=== PATIENT | male | born 1995 | race Caucasian/White ===

== ENCOUNTER 2020-08-03 09:55 | Emergency (ER) | payer OTHER, SELFPAY ==
[2020-08-03 10:22] VITALS: BP 120/66; PULSE 82; RESP 16; TEMP 36.4; O2SAT 100; BMI 17.2
--- NOTE | 2020-08-03 10:51 | ED_ITS ---
HPI - Eye Problem General Chief complaint: Eye Problems Stated complaint: swollen eye Time Seen by Provider: 08/03/20 10:51 History of Present Illness HPI Narrative: Patient complains of redness and mild discomfort in the skin of the right eyelid and below the right eye, no vision loss no injury no discharge from high no pain in the eye itself no photophobia Related Data Previous Rx's Medication Instructions Recorded cephalexin [Keflex] 500 mg PO QID 7 Days #28 cap 08/03/20 erythromycin 0.5 inch OPHTHALMIC (EYE) TID 5 08/03/20 Days #3.5 g Allergies Allergy/AdvReac Type Severity Reaction Status Date / Time No Known Allergies Allergy Unverified 03/21/20 18:48 Review of Systems Review of Systems: Positive for mildly painful red rash around right orbit Negatives are no headache no vision loss no eye pain no discharge from the eye no neck pain no fever no chills no dizziness no chest pain no shortness of breath no nausea no vomiting Yes all other systems are reviewed and are negative PMFSH Past Medical History Source: nursing notes reviewed Surgical History (Updated 08/03/20 @ 10:25 by Maisha Diaz) H/O eye surgery Social History Social History Smoking Status: Current every day smoker Smoked in Last 30 Days: Yes Use of substances other than those prescribed or required for medical reasons: No Advance Directives: No Advance Directives Information Provided: Yes Physical Exam Vital Signs: Vital Signs: Last Vital Signs Temp 97.6 F 08/03/20 10:22 Pulse 82 08/03/20 10:22 Resp 16 08/03/20 10:22 BP 120/66 08/03/20 10:22 Pulse Ox 100 08/03/20 10:22 Body Mass Index 17.2 General appearance is a and O x3, comfortable, relaxed, cooperative no acute distress Head is normocephalic atraumatic The right orbit is red with mild tenderness and mild swelling The eyes are pupils equal round react light and extraocular motions are intact, there is no pain with extraocular motions, there is no discharge from the eye, there is very mild conjunctival redness on the right side, no photophobia, no foreign body, no corneal abrasion Neck is supple Respiratory no distress Extremities full range of motion x4 Neuro no focal deficit Course Course Course Narrative: Patient with right-sided periorbital cellulitis is treated with antibiotic no vision changes no headache no pain with motion of the eye Discharge Plan Discharge Clinical Impression: Periorbital cellulitis Patient Disposition: Home, Self-Care Additional Instructions: Use antibiotic pill and ointment as directed Return to ER any time for spreading redness, vision change or vision loss, discharge from the eye, pain in the eye itself, fever, any worse condition or an y concerns or any sign of worsening infection If no improvement in 2-3 days follow with your doctor or return to the ER for recheck Prescriptions: New cephalexin [Keflex] 500 mg capsule 500 mg PO QID 7 Days Qty: 28 RF: 0 erythromycin 5 mg/gram (0.5 %) ointment 0.5 inch ophthalmic (eye) TID 5 Days Qty: 3.5 RF: 0 Interventions: ED Discharge Assessment Last Done: 08/03/20 11:10 Discharge Date/Time: 08/03/20 11:11
[2020-08-03] MEDS: cephALEXin 500 MG CAPSULE PO (11:08)
[2020-08-03] MEDS: Erythromycin Base 0.5% Oph Oin 1 GM TUBE 1 CM EYE-RIGHT (11:08)
== END 2020-08-03 11:11 | disposition home or self-care (01) ==
PROVIDERS: Emergency Provider Emergency Medicine; PCP Internal Medicine Sports Medicine
DX: L03.213 Periorbital cellulitis (principal); F17.200 Nicotine dependence, unspecified, uncomplicated
CPT/HCPCS: 99283

== ENCOUNTER 2021-07-07 17:46 | Emergency (ER) | payer OTHER, SELFPAY ==
[2021-07-07 18:29] VITALS: BP 134/70; PULSE 81; RESP 16; TEMP 37.2; O2SAT 98; BMI 18.0
[2021-07-07 18:52] LABS: IDNOW Serial# 9DD0AD1C; Strep A Nucleic Acid Negative (Negative)
[2021-07-07 19:01] LABS: COVID-19 Test Negative (Negative)
--- NOTE | 2021-07-07 19:53 | ED_ITS ---
HPI - General Adult General Chief complaint: Upper Respiratory Symptoms Stated complaint: ? strep throat Time Seen by Provider: 07/07/21 19:53 Source: patient Mode of arrival: ambulatory Limitations: no limitations History of Present Illness HPI narrative: 26 y/o male with history of COVID in Apr 2021 presents to the ED with 2 days of sore throat. He also has some generalized abdominal pain this morning, he vomited and his pain has been improving throughout the day. His throat continues to hurt and he has pain with swallowing. He denies any fever or chills. He is not coughing or having any shortness of breath. He denies any difficulty swallowing but reports pain. No known sick contacts. MD complaint: Sore throat and abdominal pain. Onset (ago): day(s) (2) Location: mouth and abdomen Radiation: non-radiation Severity: moderate Quality: aching Pain Consistency: constant Relieving factors: none Exacerbating factors: none Associated symptoms: loss of appetite, malaise, nausea/vomiting and weakness Treatments prior to arrival: none Related Data Previous Rx's Medication Instructions Recorded cephalexin 500 mg capsule (Keflex) 500 mg PO QID 7 Days #28 cap 08/03/20 erythromycin 5 mg/gram (0.5 %) eye 0.5 inch OPHTHALMIC (EYE) TID 5 08/03/20 ointment Days #3.5 g amoxicillin 500 mg tablet 500 mg PO Q12H #20 tab 07/07/21 ibuprofen 600 mg tablet 600 mg PO Q8H PRN #20 tab 07/07/21 ondansetron 4 mg disintegrating 4 mg PO Q8H PRN #7 tab 07/07/21 tablet Allergies Allergy/AdvReac Type Severity Reaction Status Date / Time No Known Allergies Allergy Unverified 03/21/20 18:48 Review of Systems Review of Systems: Constitutional: No Fever, No Chills ENT/Mouth: + sore throat, No Rhinorrhea, No Swallowing Difficulty Cardiovascular: No Chest Pain, No SOB Respiratory: No Cough, No Sputum, No Wheezing, No dyspnea Gastrointestinal: + Nausea, + Vomiting, No Diarrhea, + abdominal Pain Genitourinary: No Dysuria, No Urinary Frequency, No Hematuria Musculoskeletal: No joint pain, No Myalgias Skin: No Skin Lesions, No rash Neuro: + Weakness, No Numbness, No Dizziness, No Headache Psych: + Anxiety/Panic Heme/Lymph: + Lymphadenopathy [facility], [facility] Past Medical History Surgical History (Updated 08/03/20 @ 10:25 by Maisha Diaz) H/O eye surgery Social History Social History Advance Directives: No Advance Directives Information Provided: No Physical Exam Vital Signs: Vital Signs: Last Vital Signs Temp 98.9 F 07/07/21 18:29 Pulse 81 07/07/21 18:29 Resp 16 07/07/21 18:29 BP 134/70 07/07/21 18:29 Pulse Ox 98 07/07/21 18:29 BMI result Body Mass Index 18.0 Appearance: Alert. Oriented X3. No acute distress. Eyes: Pupils equal, round and reactive to light. ENT: Pharynx with moist mucous membranes. Posterior oropharynx with severe erythema, bilateral tonsillar enlargement with diffuse white exudates. Uvula is midline. Neck: Normal inspection. Neck supple. Positive lymphadenopathy in submandibular area bilaterally. CVS: Normal heart rate and rhythm. Pulses normal. Respiratory: No respiratory distress. Breath sounds normal. Abdomen: Soft and nontender. +BS x4 Skin: Skin warm and dry. Normal skin color. Normal skin turgor. No rashes. Extremities: No lower extremity edema. Neuro: Oriented X 3. Grossly normal, nonfocal Course Course Course Narrative: 26-year-old male presenting with sore throat, abdominal pain and vomiting. His exam is consistent with strep throat with diffuse pharyngeal erythema and bilateral tonsillar exudates. No evidence of retropharyngeal or peritonsillar abscess. His strep test is negative however given his exam and his clinical presentation will treat with 10 days of amoxicillin. His COVID test is negative. Stable for d/c home with PO abx and supportive care. Medical Decision Making Lab Data Labs: Lab Results 07/07/21 07/07/21 Range/Units 18:34 18:36 COVID-19 (TRIPP) Negative (Negative) COVID-19 Clin Com See Note S. pyogenes GrpA KATHERIN Negative (Negative) Discharge Plan Discharge Clinical Impression: Pharyngitis Qualifiers: Pharyngitis/tonsillitis etiology: unspecified etiology Qualified Code(s): J02.9 - Acute pharyngitis, unspecified Patient Disposition: Home, Self-Care Instructions: Pharyngitis (ED) Additional Instructions: Take the prescribed antibiotic as directed for a full 10 days. Use warm salt water gargles several times per day. Recommend [id number] Chloraseptic spray or Cepacol lozenges to help with sore throat. Take Motrin and/or Tylenol as needed for fevers or pains. Rest and stay hydrated. If you develop new or worsening symptoms call 911 or come back to the ER for further evaluation. Prescriptions: New amoxicillin 500 mg tablet 500 mg PO Q12H Qty: 20 RF: 0 ondansetron 4 mg tablet,disintegrating 4 mg PO Q8H PRN (Reason: nausea and vomiting) Qty: 7 RF: 0 ibuprofen 600 mg tablet 600 mg PO Q8H PRN (Reason: fever or pain) Qty: 20 RF: 0 No Action cephalexin [Keflex] 500 mg capsule 500 mg PO QID 7 Days Qty: 28 RF: 0 erythromycin 5 mg/gram (0.5 %) ointment 0.5 inch ophthalmic (eye) TID 5 Days Qty: 3.5 RF: 0 Stand Alone Forms: Work/School Release Interventions: ED Discharge Assessment Last Done: 07/07/21 20:24 Discharge Date/Time: 07/07/21 20:25
== END 2021-07-07 20:25 | disposition home or self-care (01) ==
PROVIDERS: Emergency Provider Internal Medicine; PCP Internal Medicine
DX: J02.9 Acute pharyngitis, unspecified (principal); Z20.822 Contact with and (suspected) exposure to COVID-19
CPT/HCPCS: 36415; 87635; 87651; 99282; 99283

== ENCOUNTER 2021-12-02 12:48 | Emergency (ER) | payer OTHER, SELFPAY ==
[2021-12-02 14:03] VITALS: BP 132/91; PULSE 63; RESP 18; TEMP 36.8; O2SAT 99; BMI 18.0
--- NOTE | 2021-12-02 15:26 | ED_ITS ---
HPI - Eye Problem General Chief complaint: Eye Problems Stated complaint: cellulitis Time Seen by Provider: 12/02/21 15:10 Source: patient Mode of arrival: ambulatory Limitations: no limitations History of Present Illness HPI Narrative: 26 yo male here with complaints of right upper eyelid swelling and pain for few days. No vision changes. No discharge. No eye pain or irritation. Related Data Previous Rx's Medication Instructions Recorded cephalexin 500 mg capsule (Keflex) 500 mg PO QID 7 Days #28 cap 08/03/20 erythromycin 5 mg/gram (0.5 %) eye 0.5 inch OPHTHALMIC (EYE) TID 5 08/03/20 ointment Days #3.5 g amoxicillin 500 mg tablet 500 mg PO BID #20 tab 07/07/21 amoxicillin 500 mg tablet 500 mg PO Q12H #20 tab 07/07/21 ibuprofen 600 mg tablet 600 mg PO Q8H PRN #20 tab 07/07/21 ibuprofen 600 mg tablet 600 mg PO Q8H PRN #20 tab 07/07/21 ondansetron 4 mg disintegrating 4 mg PO Q8H PRN #10 tab 07/07/21 tablet ondansetron 4 mg disintegrating 4 mg PO Q8H PRN #7 tab 07/07/21 tablet erythromycin 5 mg/gram (0.5 %) eye 0.5 inch OPHTHALMIC (EYE) TID #3.5 12/02/21 ointment g Allergies Allergy/AdvReac Type Severity Reaction Status Date / Time No Known Allergies Allergy Verified 12/02/21 14:03 Review of Systems Review of Systems: Yes all other systems are reviewed and are negative Constitutional: Constitutional: Reports no additional constitutional complaints, Denies body ache(s), Denies chills, Denies fever(s), Denies headache(s) and Denies weakness Eyes: Eyes: Reports no additional eye complaints, Denies change in vision, Denies eye discharge, Denies eye pain and Denies photophobia ENT: Reports system reviewed and no additional complaints, except as docum ented, Denies dizziness, Denies headache(s), Denies nasal congestion, Denies nasal discharge and Denies neck pain Cardiovascular: Cardiovascular: Reports no additional cardiovascular complaints, Denies chest pain, Denies leg edema and Denies dyspnea Respiratory: Respiratory: Reports no additional respiratory complaints, Denies cough and Denies dyspnea Gastrointestinal: Gastrointestinal: Reports no additional gastrointestinal complaints, Denies abdominal pain, Denies diarrhea, Denies nausea and Denies vomiting Genitourinary: Genitourinary: Denies urinary incontinence Musculoskeletal: Musculoskeletal: Reports no additional musculoskeletal complaints, Denies back pain, Denies arthralgias, Denies joint swelling, Denies neck pain, Denies numbness and Denies tingling Integumentary/Breasts: Skin/Breast: Reports system reviewed and no additional complaints, except as docu and Denies rash Neurologic: Reports system reviewed and no additional complaints, except as documented, Denies Abnormal speech present, Denies dizziness, Denies headache (s), Denies numbness, Denies tingling and Denies weakness PMF Past Medical History Attestation statement: The following information was validated with the patient. Source: old records reviewed and nursing notes reviewed Surgical History H/O eye surgery Social History Social History Advance Directives: No Advance Directives Information Provided: No Physical Exam Vital Signs: Vital Signs: Last Vital Signs Temp 98.3 F 12/02/21 14:03 Pulse 63 12/02/21 14:03 Resp 18 12/02/21 14:03 BP 132/91 H 12/02/21 14:03 Pulse Ox 99 12/02/21 14:03 BMI result Body Mass Index 18.0 Const: General: cooperative, healthy appearing, comfortable and no acute distress Orientation/consciousness: patient oriented x3 Limitations: no limitations HEENT: Head: Yes normal to inspection Ears: hearing grossly normal bilater ally Eyes: General: appearance normal, both eyes and all related structures Visual [place]: normal visual [place] by confrontation Alignment and Position: alignment normal Periorbital: periorbital findings normal Eyelids: Yes eyelid abnormality (Right upper eyelid swelling, erythema with palpable stye) Conjunctivae: conjunctivae normal Sclerae: sclerae normal Corneas: corneas normal Pupils: Equal, round and reactive pupils present EOM: EOMs intact bilaterally Direct Ophthalmoscopy: normal light reflex and No photophobia Neck: Neck: Yes normal visual inspection Chest: Chest palpation & inspection: normal inspection of the chest Resp: Effort & Inspection: normal respiratory effort Back/Spine/Pelvis: Thoracic/Lumbar Spine: thoracic and lumbar spine normal to inspection Skin: General skin exam: no rashes or lesions noted Neuro: General: patient oriented x3 and moves all extremities Cranial nerves: Yes Equal, round and reactive pupils present Cognition (Neuro): normal cognition Speech: No Abnormal speech present Gait exam (Neuro): Normal gait present Course Course Course Narrative: 26-year-old male here with right upper eyelid swelling and redness consistent with a stye Will recommend warm compresses, gentle massage and topical erythromycin. Reviewed worrisome signs and symptoms of when to return to the emergency department. Comfortable discharge home. MDM - Eye Problem Medical Records Attestation: I reviewed the patient's medical records. Lab Data Attestation: I reviewed the patient's lab results. Discharge Plan Discharge Clinical Impression: [place] Patient Disposition: Home, Self-Care Instructions: Chantelle (ED) Additional Instructions: Warm compresses, gentle massage Prescriptions: New erythromycin 5 mg/gram (0.5 %) ointment 0.5 inch ophthalmic (eye) TID Qty: 3.5 0RF No Action cephalexin [Keflex] 500 mg capsule 500 mg PO QID 7 Days Qty: 28 0RF erythromycin 5 mg/gram (0.5 %) ointment 0.5 inch ophthalmic (eye) TID 5 Days Qty: 3.5 0RF amoxicillin 500 mg tablet 500 mg PO Q12H Qty: 20 0RF ondansetron 4 mg tablet,disintegrating 4 mg PO Q8H PRN (Reason: nausea and vomiting) Qty: 7 0RF ibuprofen 600 mg tablet 600 mg PO Q8H PRN (Reason: fever or pain) Qty: 20 0RF amoxicillin 500 mg tablet 500 mg PO BID Qty: 20 0RF ibuprofen 600 mg tablet 600 mg PO Q8H PRN (Reason: fever or pain) Qty: 20 0RF ondansetron 4 mg tablet,disintegrating 4 mg PO Q8H PRN (Reason: nausea and vomiting) Qty: 10 0RF Referrals: Lillie Hernandez [Primary Care Provider] - 1 week Interventions: ED Discharge Assessment Last Done: 12/02/21 15:54 Discharge Date/Time: 12/02/21 15:56
[2021-12-02] MEDS: Erythromycin Base 0.5% Oph Oin 1 GM TUBE 1 CM EYE-RIGHT (15:30)
== END 2021-12-02 15:56 | disposition home or self-care (01) ==
LOC: HO.ED 15:42
PROVIDERS: Emergency Provider Emergency Medicine
DX: H00.011 Hordeolum externum right upper eyelid (principal); H57.11 Ocular pain, right eye
CPT/HCPCS: 99283

== ENCOUNTER 2024-01-01 07:10 | Emergency (ER) | payer OTHER, SELFPAY ==
--- NOTE | 2024-01-01 | ECG_ITS ---
Test Reason : CHEST PAIN Blood Pressure : / mmHG Vent. Rate : 083 BPM Atrial Rate : 083 BPM P-R Int : 112 ms QRS Dur : 078 ms QT Int : 338 ms P-R-T Axes : 049 075 014 degrees QTc Int : 397 ms Normal sinus rhythm Normal ECG No previous ECGs available Referred By: Generic ED Physician Electronically Signed By:JOSE MARIA DAO MD
--- NOTE | ~2024-01-01 | XR_ITS ---
EXAMINATION: XR chest 2V CLINICAL INFORMATION: Reason for Exam sob COMPARISON: No prior chest x-ray available in our system for comparison at the time of this dictation. TECHNIQUE: XR chest 2V, 2 Views Lungs and Princess: Both lungs are clear. Pleura: Normal. Costophrenic angles are sharp. No pneumothorax. Heart: The heart is normal in size. Mediastinum: The mediastinum is within normal limits.. Bones: Skeletal structures included are normal for patient's age. XR/XR chest 2V IMPRESSION: No radiographic evidence of acute cardiopulmonary disease.
[2024-01-01 07:19] VITALS: BP 145/64; PULSE 90; RESP 18; TEMP 37.7; O2SAT 99; BMI 19.1
--- NOTE | 2024-01-01 07:25 | ED.URI ---
HPI - URI/Sore Throat General Chief Complaint: Upper Respiratory Symptoms Stated Complaint: sob, chest pain, cough, at home COVID test + Time Seen by Provider: 01/01/24 07:25 Source: patient Mode of arrival: ambulatory Limitations: no limitations History of Present Illness ED Provider: Sneha Castillo APRN HPI Narrative: 28-year-old male with no known medical history presents to the ER with complaints of headache, chest discomfort with coughing and breathing, sore throat, body aches, subjective fevers, chills for 72 hours. Patient took a COVID test yesterday and it was positive at home. Related Data Previous Rx's ?Medication ?Instructions ?Recorded cephalexin 500 mg capsule (Keflex) 500 mg PO QID 7 days #28 caps 08/03/20 erythromycin 5 mg/gram (0.5 %) eye 0.5 inch ophthalmic (eye) TID 5 08/03/20 ointment days #3.5 grams amoxicillin 500 mg tablet 500 mg PO BID #20 tabs 07/07/21 amoxicillin 500 mg tablet 500 mg PO Q12H #20 tabs 07/07/21 ibuprofen 600 mg tablet 600 mg PO Q8H PRN fever or pain 07/07/21 #20 tabs ibuprofen 600 mg tablet 600 mg PO Q8H PRN fever or pain 07/07/21 #20 tabs ondansetron 4 mg disintegrating 4 mg PO Q8H PRN nausea and 07/07/21 tablet vomiting #10 tabs ondansetron 4 mg disintegrating 4 mg PO Q8H PRN nausea and 07/07/21 tablet vomiting #7 tabs erythromycin 5 mg/gram (0.5 %) eye 0.5 inch ophthalmic (eye) TID #3.5 12/02/21 ointment grams nirmatrelvir 300 mg (150 mg See Rx Instructions PO .COMPLEX 01/01/24 x2)-ritonavir 100 mg tablet,dose #30 ea pack (Paxlovid) Allergies Allergy/AdvReac Type Severity Reaction Status Date / Time No Known Allergies Allergy Verified 01/01/24 07:19 Review of Systems Review of Systems: Yes all other systems are reviewed and are negative Constitutional: Constitutional: Reports no additional constitutional complaints, Reports body ache(s), Reports chills, Reports fever(s), Reports headache(s) and Denies weakness Eyes: Eyes: Reports no additional eye complaints and Denies change in vision ENT: Reports system reviewed and no additional complaints, except as documented, Denies dizziness, Reports headache(s), Denies nasal congestion, Denies nasal discharge and Denies neck pain Cardiovascular: Cardiovascular: Reports no additional cardiovascular complaints, Reports chest pain, Denies leg edema and Reports dyspnea Respiratory: Respiratory: Reports no additional respiratory complaints, Reports cough and Reports dyspnea Gastrointestinal: Gastrointestinal: Reports no additional gastrointestinal complaints, Denies abdominal pain, Denies diarrhea, Denies nausea and Denies vomiting Genitourinary: Genitourinary: Denies urinary incontinence Musculoskeletal: Musculoskeletal: Reports no additional musculoskeletal complaints, Denies back pain, Denies arthralgias, Denies joint swelling, Denies neck pain, Denies numbness and Denies tingling Integumentary/Breasts: Skin/Breast: Reports system reviewed and no additional complaints, except as docu and Denies rash Neurologic: Reports system reviewed and no additional complaints, except as documented, Denies Abnormal speech present, Denies dizziness, Reports headache(s), Denies numbness, Denies tingling and Denies weakness [facility] Past Medical History Attestation statement: The following information was validated with the patient. Source: old records reviewed and nursing notes reviewed Surgical History H/O eye surgery Social History Social History Unable to assess alcohol history related to: Unknown Smoked in Last 30 Days: No Use of substances other than those prescribed or required for medical reasons: No Advance Directives: No Advance Directives Information Provided: Yes Do you have a plan to hurt others: No Plan Physical Exam Vital Signs: Vital Signs: Last Vital Signs Temp 99.9 F 01/01/24 07:19 Pulse 90 01/01/24 07:19 Resp 18 01/01/24 07:19 BP 145/64 H 01/01/24 07:19 Pulse Ox 99 01/01/24 07:19 O2 Del Method Room Air 01/01/24 07:19 BMI result Body Mass Index 19.1 Const: General: cooperative, healthy appearing, comfortable and no acute distress Orientation/consciousness: patient oriented x3 Limitations: no limitations HEENT: Head: Yes normal to inspection Ears: hearing grossly normal bilaterally and TM's normal bilaterally General nose exam: Normal external nose present Face and sinus: Yes normal facial exam Mouth: Normal oral and palatal mucosa present Throat: Yes posterior oropharynx normal, Yes tonsils normal and Yes uvula midline Eyes: General: appearance normal, both eyes and all related structures Pupils: Equal, round and reactive pupils present Neck: Neck: Yes normal visual inspection, Yes full ROM, Yes no lymphadenopathy and Yes no meningeal signs Chest: Chest palpation & inspection: normal inspection of the chest Resp: Effort & Inspection: normal respiratory effort Auscultation: clear to auscultation bilaterally Cardio: Rate: regular rate Rhythm: regular rhythm Peripheral pulses: Peripheral pulses 2+ throughout GI: Inspection: Yes normal to inspection Palpation (GI): Soft to palpation and nontender Auscultation: normal bowel sounds Back/Spine/Pelvis: Thoracic/Lumbar Spine: thoracic and lumbar spine normal to inspection Skin: General skin exam: no rashes or lesions noted Neuro: General: patient oriented x3, no meningeal signs, no focal motor deficits and normal sensation to monofilament Cranial nerves: Yes Equal, round and reactive pupils present Cognition (Neuro): normal cognition Speech: No Abnormal speech present Gait exam (Neuro): Normal gait present Motor exam (neuro): 5/5 motor strength present throughout Extrem: General: Yes normal to inspection, Yes no pedal edema and Yes no calf tenderness Course Course Course Narrative: Covid screen positive. No hypoxia or tachypnea. VSS. Explained results. CXR negative. EKG nonischemic. Patient desires rx for Paxlovid after review. Reviewed worrisome signs/symptoms with patient and when to seek additional care. Comfortable with plan for discharge home.. Medications Administered Discontinued Medications Generic Name Dose Route Start Last Admin Trade Name Freq PRN Reason Stop Dose Admin Ibuprofen 600 mg 01/01/24 07:33 01/01/24 07:38 Ibuprofen 600 Mg Tablet PO 01/01/24 07:34 600 mg ONCE ONE Administration Medical Decision Making Medical Decision Making [facility] Narrative: 28-year-old male with no known medical history presents to the ER with complaints of headache, chest discomfort with coughing and breathing, sore throat, body aches, subjective fevers, chills for 72 hours. Patient took a COVID test yesterday and it was positive at home. LS CTA Exam is benign VSS Will obtain CXR, viral testing, provide antipyretic Differential Diagnosis Differential Diagnoses: The differential diagnosis associated with the presentation includes Pneumonia, viral syndrome Low suspicion for PE with no clinical findings concerning for DVT, no hypoxia, no tachypnea, no tachycardia. No family or personal history of same Low suspicion for ACS, myocarditis, pericarditis with history of present illness atypical, pleuritic CP/chest wall tenderness more likely from coughing, non ischemic EKG Admission/Observation Consideration of admission/observation: Escalation of care including admission/observation considered COVID screen positive with no hypoxia or tachypnea requiring supplemental oxygen requiring admission for further manage Lab Data MDM Lab Attestation statement: I reviewed the patient's lab results. Labs: Lab Results 01/01/24 Range/Units 07:33 Influenza Type A (PCR) NEGATIVE (Negative) Influenza Type B (PCR) NEGATIVE (Negative) RSV RNA Qual (PCR) NEGATIVE (Negative) SARS-CoV-2 RNA (RT-PCR) POSITIVE A (Negative) Independent Interpretation I performed an independent interpretation of an: EKG and Plain X-Ray Interpretation: I independently viewed the EKG which shows normal sinus rhythm with a rate 83, normal MO, normal QRS, normal QT I independently viewed the x-ray and agree with the radiology report Radiology Impression Discussion of test interpretation with radiology: I have reviewed the radiologist's reading. Radiologist Impression: [place] [id number] XRay Report Signed Patient: David Keene MR#: [id number] : 1995 Acct:[id number] Age/Sex: 28 / M ADM Date: 01/01/24 Loc: .ED Attending Dr: Ordering Physician: Manuel Velarde MD Date of Service: 01/01/24 Procedure(s): XR chest 2V Accession Number(s): [id number] cc: Manuel Velarde MD; Physician,Unknown ~ EXAMINATION: XR chest 2V CLINICAL INFORMATION: Reason for Exam sob COMPARISON: No prior chest x-ray available in our system for comparison at the time of this dictation. TECHNIQUE: XR chest 2V, 2 Views Lungs and Princess: Both lungs are clear. Pleura: Normal. Costophrenic angles are sharp. No pneumothorax. Heart: The heart is normal in size. Mediastinum: The mediastinum is within normal limits.. Bones: Skeletal structures included are normal for patient's age. XR/XR chest 2V IMPRESSION: No radiographic evidence of acute cardiopulmonary disease. Independent Historian Clinical information obtained from an independent historian. History obtained from or confirmed by: Friend Tests considered The following testing was considered but not selected: No clinical concerns for PE requiring labs or CTA Prescription Management I considered prescription management with: Antiviral and Antibiotic Discharge Plan Discharge Clinical Impression: COVID-19 Patient Disposition: Home, Self-Care Instructions: COVID-19 (Coronavirus Disease 2019) (ED) Additional Instructions: Your COVID screen was positive. Please quarantine for 5 days then mask for an additional 5 days Take Motrin or Tylenol for any pain or fever Increase fluids, rest Return for any worsening symptoms We are prescribing you an antiviral medication. Side effects may include nausea, vomiting, diarrhea. Please take this medication with food to minimize side effects. If you do develop these side effects you may discontinue the medication. Prescriptions: New Paxlovid 300 mg (150 mg x 2)-100 mg tablets,dose pack See Rx Instructions .ROUTE .COMPLEX Qty: 30 0RF Rx Instructions: take TWO 150 mg tablets of nirmatrelvir with ONE 100 mg tablet of ritonavir twice daily for 5 days No Action cephalexin [Keflex] 500 mg capsule 500 mg PO QID 7 Days Qty: 28 0RF erythromycin 5 mg/gram (0.5 %) ointment 0.5 inch ophthalmic (eye) TID 5 Days Qty: 3.5 0RF erythromycin 5 mg/gram (0.5 %) ointment 0.5 inch ophthalmic (eye) TID Qty: 3.5 0RF amoxicillin 500 mg tablet 500 mg PO Q12H Qty: 20 0RF ondansetron 4 mg tablet,disintegrating 4 mg PO Q8H PRN (Reason: nausea and vomiting) Qty: 7 0RF ibuprofen 600 mg tablet 600 mg PO Q8H PRN (Reason: fever or pain) Qty: 20 0RF amoxicillin 500 mg tablet 500 mg PO BID Qty: 20 0RF ibuprofen 600 mg tablet 600 mg PO Q8H PRN (Reason: fever or pain) Qty: 20 0RF ondansetron 4 mg tablet,disintegrating 4 mg PO Q8H PRN (Reason: nausea and vomiting) Qty: 10 0RF Referrals: Physician,Unknown J [Primary Care Provider] - 1 week Stand Alone Forms: Work/School Release Print Language: Comoran
[2024-01-01] MEDS: Ibuprofen 600 MG TABLET PO (07:38)
--- NOTE | 2024-01-01 07:41 | PC.NURSE ---
patient arrives ambulatory with steady gait through exteral triage, patient states he took an at home covid test and it came back positive. patient states he had covid in the past but this feels worse. complaining of generalized body weakness and a productive cough. states he felt febrile at home but did not take his temperature. patient afebrile at arrival, ambulatory with steady gait back from xray, LSCTA,swab sent to lab. patient medicated per SEP. awaiting results at this time
[2024-01-01 08:16] LABS: Influenza A PCR NEGATIVE (Negative); Influenza B PCR NEGATIVE (Negative); Resp Syncy Virus RNA Qual PCR NEGATIVE (Negative); SARS COV2 PCR INHOUSE POSITIVE (Negative)
[2024-01-01 09:02] VITALS: BP 145/65; PULSE 79; RESP 16; TEMP 37.2; O2SAT 100
== END 2024-01-01 09:07 | disposition home or self-care (01) ==
PROVIDERS: Emergency Provider Emergency Medicine
DX: U07.1 COVID-19 (principal); R06.02 Shortness of breath
CPT/HCPCS: 0241U; 71046; 93005; 99283; 99285

== ENCOUNTER → 2024-01-01 07:12 | Outpatient (BNV) | payer SELFPAY | PROVIDERS: Emergency Provider Emergency Medicine; Visit Provider Internal Medicine Cardiovascular Disease | DX: R07.9 Chest pain, unspecified (principal) | CPT/HCPCS: 93010 ==

== ENCOUNTER 2024-01-08 10:21 | Emergency (ER) | payer OTHER, SELFPAY ==
[2024-01-08 10:47] VITALS: BP 120/70; PULSE 79; RESP 16; TEMP 36.4; O2SAT 99; BMI 18.8
[2024-01-08 11:01] LABS: MANUAL DIFF FLAG NO
[2024-01-08 11:04] LABS: Basophils Percent Auto 0.3 % (0-2); Eosinophils Absolute Auto 0.4 X10*3/uL (0.0-0.4); Eosinophils Percent Auto 4.2 % (0-4); Hemoglobin 14.9 g/dl (14.0-18.0); Imm Gran Abs Auto 0.07 X10*3/uL (0.00-0.03); Imm Gran Pct Auto 0.8 % (0.0-0.4); Lymphocytes Percent Auto 22.7 % (20-40); Mean Corpuscular HGB Conc 34.7 g/dl (31.0-36.0); Mean Corpuscular Hemoglobin 30.9 pg (27.0-33.0); Mean Corpuscular Volume 89.2 fL (80.0-98.0); Mean Platelet Volume 9.6 fL (9.4-12.4); Monocytes Absolute Auto 0.6 X10*3/uL (0.1-1.2); Monocytes Percent Auto 6.9 % (2-11); Neutrophils Absolute Auto 5.8 x10*3/uL (2.0-8.3); Neutrophils Percent Auto 65.1 % (45-73); Platelet Count 397 X10*3/uL (160-400); Red Blood Count 4.82 X10*6/uL (4.60-5.80); Red Cell Distribution Width 11.7 % (11.0-16.0); White Blood Count 8.9 X10*3/uL (4.8-10.8)
[2024-01-08 11:15] LABS: INTERNATIONAL NORM RATIO 0.9 (0.9-1.1); Prothrombin Time 11.5 SEC (11.1-13.3)
[2024-01-08 11:17] LABS: Alanine Aminotransferase 33 U/L (0-40); Albumin Level 4.3 g/dL (3.5-5.0); Alkaline Phosphatase 87 U/L (39-117); Anion Gap 14 (12-20); Aspartate Amino Transferase 22 U/L (5-37); Bilirubin Direct 0.1 mg/dL (0.0-0.5); Bilirubin Total 0.3 mg/dL (0.0-1.0); Blood Urea Nitrogen 18 mg/dL (9-16); Calcium 9.4 mg/dL (8.4-10.2); Carbon Dioxide 29 mmol/L (22-29); Chloride 107 mmol/L (96-108); Creatinine Clr Calc Pharmacy 98.7; Estimated Glomerular Filt Rate > 60; Glucose Random 80 mg/dL (60-115); Partial Thromboplastin Time 33.9 SEC (26.0-36.8); Potassium 4.2 mmol/L (3.3-5.1); Sodium 146 mmol/L (135-145); Total Protein 7.6 g/dL (6.5-8.0)
--- NOTE | 2024-01-08 11:27 | ED_ITS ---
History of Present Illness General Chief Complaint: Epistaxis Stated Complaint: nosebleeds covid + Time Seen by Provider: 01/08/24 10:53 Source: patient and RN notes reviewed Mode of arrival: ambulatory Limitations: no limitations History of Present Illness HPI Narrative: This is a 28-year-old male, with no known medical problems, who presents emergency department with complaints of intermittent nosebleeds. Patient states he has nosebleeds within the last week. He has not on blood thinners. He tested positive for COVID last Wednesday. He states that the nosebleeds only lasts for several minutes and resolves on its own. No nosebleed lasting for more than 10 minutes. No recent head trauma. He does not pick his nose. He states that he used Afrin nasal spray 1 week ago. He states that he had slight bloody discharge the day prior however all bloody noses has a occurred after using Afrin. He states slight can get ingestion, no excessive sneezing or nose blowing. He states that he had a nosebleed this morning when he woke up. No severe headache, chest pain, shortness breath, abdominal pain, nausea, vomiting or diarrhea. No other complaints or concerns at this time. Location: Yes right nares Duration: Yes constant Treatment prior to arrival: Yes nose pinching Related Data Previous Rx's ?Medication ?Instructions ?Recorded cephalexin 500 mg capsule (Keflex) 500 mg PO QID 7 days #28 caps 08/03/20 erythromycin 5 mg/gram (0.5 %) eye 0.5 inch ophthalmic (eye) TID 5 08/03/20 ointment days #3.5 grams amoxicillin 500 mg tablet 500 mg PO BID #20 tabs 07/07/21 amoxicillin 500 mg tablet 500 mg PO Q12H #20 tabs 07/07/21 ibuprofen 600 mg tablet 600 mg PO Q8H PRN fever or pain 07/07/21 #20 tabs ibuprofen 600 mg tablet 600 mg PO Q8H PRN fever or pain 07/07/21 #20 tabs ondansetron 4 mg disintegrating 4 mg PO Q8H PRN nausea and 07/07/21 tablet vomiting #10 tabs ondansetron 4 mg disintegrating 4 mg PO Q8H PRN nausea and 07/07/21 tablet vomiting #7 tabs erythromycin 5 mg/gram (0.5 %) eye 0.5 inch ophthalmic (eye) TID #3.5 12/02/21 ointment grams nirmatrelvir 300 mg (150 mg See Rx Instructions PO .COMPLEX 01/01/24 x2)-ritonavir 100 mg tablet,dose #30 ea pack (Paxlovid) Allergies Allergy/AdvReac Type Severity Reaction Status Date / Time No Known Allergies Allergy Verified 01/08/24 10:49 Review of Systems 2 Review of Systems: Yes all other systems are reviewed and are negative Constitutional: Constitutional: Reports as per [facility] Past Medical History Surgical History H/O eye surgery Social History Social History Unable to assess alcohol history related to: Unknown Advance Directives: No Advance Directives Information Provided: No Do you have a plan to hurt others: No Plan Physical Exam 2 Vital Signs: Vital Signs: Last Vital Signs Temp 98.2 F 01/08/24 12:00 Pulse 71 01/08/24 12:00 Resp 16 01/08/24 12:00 BP 112/65 01/08/24 12:00 Pulse Ox 98 01/08/24 12:00 O2 Del Method Room Air 01/08/24 12:00 BMI result Body Mass Index 18.8 Const: General: cooperative, comfortable and no acute distress O rientation/consciousness: patient oriented x3 Limitations: no limitations HEENT: Other: No septal hematoma. No blood noted in bilateral nares Head: Yes normal to inspection, Yes normocephalic and Yes atraumatic E ars: hearing grossly normal bilaterally General nose exam: Normal external nose present Face and sinus: Yes normal facial exam Mouth: Normal oral and palatal mucosa present, oropharynx normal and moist mucous membranes Throat: Yes posterior oropharynx normal Eyes: General: appearance normal, both eyes and all related structures E yelids: Yes eyelids normal Conjunctivae: conjunctivae normal Sclerae: s clerae normal Pupils: Equal, round and reactive pupils present EOM: EOMs intact bilaterally Neck: Neck: Yes normal visual inspection, Yes full ROM and Yes no lymphadenopathy Lymphatic: no lymphadenopathy noted Chest: Chest palpation & inspection: normal inspection of the chest Resp: Effort & Inspection: normal respiratory effort and able to speak in complete sentences Auscultation: clear to auscultation bilaterally, no crackles, no rales, no rhonchi and no wheezes Cardio: Rate: regular rate Rhythm: regular rhythm Heart sounds: S1 normal heart sound present and S2 normal heart sound present GI: Inspection: Yes normal to inspection Skin: General skin exam: no rashes or lesions noted Trauma: no lacerations or abrasions Wounds: no wounds Neuro: General: patient oriented x3 and moves all extremities Cranial nerves: Yes Equal, round and reactive pupils present Extrem: General: Yes normal to inspection Right upper extremity: normal to inspection Left upper extremity: normal to inspection Right lower extremity: normal to inspection Left lower extremity: normal to inspection Medical Decision Making Medical Decision Making [facility] Narrative: This is a 28-year-old male who presents emergency department with complaints intermittent nosebleeds x1 week. He was diagnosed with COVID last week. He has had for nosebleeds over the course of last week. Last nosebleed was this morning. No nosebleed lasting for longer than 10 minutes. On examination, vital signs within normal limits. He has had no dizziness or severe headache. No head trauma. No septal hematoma noted on examination. No active bleeding at this time. Labs were obtained, H&H within normal limits. PT INR also within normal range. Discussed findings with patient. Given he has no active bleeding on examination without any evidence of septal hematoma, I discussed return precautions. I also advised patient to avoid swimming, nose blowing, Afrin nasal spray. Advised to use humidifier in bedroom. He understands and agrees with this plan, and will return with any new or worsening symptoms. Patient stable for discharge Differential Diagnosis Differential Diagnoses: The differential diagnosis associated with the presentation includes Epistaxis, anemia, trauma, posterior nosebleed, anterior nosebleed Lab Data [facility] Lab Attestation statement: I reviewed the patient's lab results. No leukocytosis, stable H&H, chemistry within normal range, nondiagnostic, PT INR within normal range. 01/08/24 10:57 01/08/24 10:57 Labs: Lab Results 01/08/24 Range/Units 10:57 WBC 8.9 (4.8-10.8) X10*3/uL RBC 4.82 (4.60-5.80) X10*6/uL Hgb 14.9 (14.0-18.0) g/dl Hct 43.0 (42.0-52.0) % MCV 89.2 (80.0-98.0) fL MCH 30.9 (27.0-33.0) pg MCHC 34.7 (31.0-36.0) g/dl RDW 11.7 (11.0-16.0) % Plt Count 397 (160-400) X10*3/uL MPV 9.6 (9.4-12.4) fL Immature Gran % (Auto) 0.8 H (0.0-0.4) % Neut % (Auto) 65.1 (45-73) % Lymph % (Auto) 22.7 (20-40) % Bullitt % (Auto) 6.9 (2-11) % Eos % (Auto) 4.2 H (0-4) % Baso % (Auto) 0.3 (0-2) % Lymph # (Auto) 2.0 (1.2-4.9) X10*3/uL [place] # (Auto) 0.6 (0.1-1.2) X10*3/uL Eos # (Auto) 0.4 (0.0-0.4) X10*3/uL Baso # (Auto) 0.0 (0.0-0.2) X10*3/uL Abs Immat Gran (auto) 0.07 H (0.00-0.03) X10*3/uL Absolute Neuts (auto) 5.8 (2.0-8.3) x10*3/uL Absolute Nucleated RBC 0.000 (0.0-0.012) X10*3/uL Nucleated RBC % (auto) 0.0 (0.0-0.2) /100WBC PT 11.5 (11.1-13.3) SEC INR 0.9 (0.9-1.1) APTT 33.9 (26.0-36.8) SEC Sodium 146 H (135-145) mmol/L Potassium 4.2 (3.3-5.1) mmol/L Chloride 107 (96-108) mmol/L Carbon Dioxide 29 (22-29) mmol/L Anion Gap 14 (12-20) BUN 18 H (9-16) mg/dL Creatinine 0.85 (0.5-1.4) mg/dL Estim Creat Clear Calc 98.7 Estimated GFR > 60 Random Glucose 80 (60-115) mg/dL Calcium 9.4 (8.4-10.2) mg/dL Total Bilirubin 0.3 (0.0-1.0) mg/dL Direct Bilirubin 0.1 (0.0-0.5) mg/dL AST 22 (5-37) U/L ALT 33 (0-40) U/L Alkaline Phosphatase 87 (39-117) U/L Total Protein 7.6 (6.5-8.0) g/dL Albumin 4.3 (3.5-5.0) g/dL Independent Historian Clinical information obtained from an independent historian. History obtained from or confirmed by: Parent Discharge Plan Discharge Clinical Impression: COVID-19, Epistaxis Patient Disposition: Home, Self-Care Instructions: Nosebleed (ED), COVID-19 (Coronavirus Disease 2019) (ED) Additional Instructions: You were seen in the emergency department for frequent nosebleeds. Your blood work today was reassuring. Avoid Afrin, or any products into the nasal cavity as this can be irritating. No swimming. Do not aggressively blow your nose as this can cause nosebleed. If your nose begins to rebleed, please apply direct firm pressure to your nose. If the nosebleed lasts for longer than 10-15 minutes, this is when you need to seek emergent care. If you develop any new or worsening symptoms including but not limited to severe headache, dizziness, nosebleeds not resolving after firm pressure, chest pain or shortness of breath, please return for re-evaluation. Prescriptions: No Action cephalexin [Keflex] 500 mg capsule 500 mg PO QID 7 Days Qty: 28 0RF erythromycin 5 mg/gram (0.5 %) ointment 0.5 inch ophthalmic (eye) TID 5 Days Qty: 3.5 0RF erythromycin 5 mg/gram (0.5 %) ointment 0.5 inch ophthalmic (eye) TID Qty: 3.5 0RF amoxicillin 500 mg tablet 500 mg PO Q12H Qty: 20 0RF ondansetron 4 mg tablet,disintegrating 4 mg PO Q8H PRN (Reason: nausea and vomiting) Qty: 7 0RF ibuprofen 600 mg tablet 600 mg PO Q8H PRN (Reason: fever or pain) Qty: 20 0RF amoxicillin 500 mg tablet 500 mg PO BID Qty: 20 0RF ibuprofen 600 mg tablet 600 mg PO Q8H PRN (Reason: fever or pain) Qty: 20 0RF ondansetron 4 mg tablet,disintegrating 4 mg PO Q8H PRN (Reason: nausea and vomiting) Qty: 10 0RF Paxlovid 300 mg (150 mg x 2)-100 mg tablets,dose pack See Rx Instructions .ROUTE .COMPLEX Qty: 30 0RF Rx Instructions: take TWO 150 mg tablets of nirmatrelvir with ONE 100 mg tablet of ritonavir twice daily for 5 days Stand Alone Forms: Work/School Release Interventions: ED Discharge Assessment Last Done: 01/08/24 12:00 Discharge Date/Time: 01/08/24 12:01 Print Language: Bahraini
[2024-01-08 12:00] VITALS: BP 112/65; PULSE 71; RESP 16; TEMP 36.8; O2SAT 98
== END 2024-01-08 12:01 | disposition home or self-care (01) ==
PROVIDERS: Physician Assistant Medical; Emergency Provider Emergency Medicine; PCP Internal Medicine
DX: U07.1 COVID-19 (principal); R04.0 Epistaxis
CPT/HCPCS: 36415; 80048; 80076; 85025; 85610; 85730; 99283